=== PATIENT | male | born 1990 | race Caucasian/White ===

== ENCOUNTER 2017-05-24 03:14 | Inpatient (IN) | payer OTHER ==
[2017-05-24] MEDS ORDERED: HYDROmorphone 1 MG/ML 1 ML SYRINGE IVP STA ×2 (03:38→05:12)
[2017-05-24] MEDS ORDERED: RX INFO: IV CONTRAST WAS GIVEN 1 EACH MISC MISCELLANE PRN (03:38)
[2017-05-24] MEDS ORDERED: SODIUM CHLORIDE 0.9% 1,000 ML IV STA (03:38)
--- NOTE | 2017-05-24 03:41 | ED ---
General Adult HPI - General Source: patient, RN notes reviewed Mode of arrival: ambulatory Limitations: no limitations <Adrianne Hardy - Last Filed: 05/24/17 03:42> <Arnoldo Macario - Last Filed: 05/24/17 05:24> - General Chief complaint: Extremity Problem,Nontraumatic Stated complaint: leg pain Time Seen by Provider: 05/24/17 03:21 - History of Present Illness Initial comments: 26-year-old male presents to the emergency room chief complaint of right thigh pain. Patient states he had an injection about 3 days ago of anabolic steroids to the right thigh. Patient states since she's had a lot of pain feel swollen and it hurts to move the leg. Patient denies any redness to the area. Patient denies any fever or chills. Patient states she was concerned due to his continued pain and discomfort so he thought that he should be evaluated.Patient denies any recent fever, chills, shortness of breath, chest pain, back pain, abdominal pain, nausea vomiting, numbness or tingling, dysuria or hematuria, constipation or diarrhea, headaches or visual changes, or any other current symptoms. (Adrianne Hardy) - Related Data Home Medications Medication Instructions Recorded Confirmed No Known Home Medications [No 01/20/15 01/20/15 Known Home Medications] Allergies Allergy/AdvReac Type Severity Reaction Status Date / Time No Known Allergies Allergy Verified 05/24/17 03:21 Review of Systems ROS Other: All systems not noted in ROS Statement are negative. <Adrianne Hardy - Last Filed: 05/24/17 03:42> ROS Other: All systems not noted in ROS Statement are negative. <Arnoldo Macario - Last Filed: 05/24/17 05:24> ROS Statement: Those systems with pertinent positive or pertinent negative responses have been documented in the HPI. Past Medical History Past Medical History: No Reported History History of Any Multi-Drug Resistant Organisms: None Reported Past Surgical History: No Surgical Hx Reported Past Psychological History: No Psychological Hx Reported Smoking Status: Never smoker Past Alcohol Use History: None Reported Past Drug Use History: None Reported <Adrianne Hardy - Last Filed: 05/24/17 03:42> General Exam Limitations: no limitations <Adrianne Hardy - Last Filed: 05/24/17 03:42> <Arnoldo Macario - Last Filed: 05/24/17 05:24> - General Exam Comments Initial Comments: General: The patient is awake and alert, in no distress, and does not appear acutely ill. Neck: The neck is supple, there is no tenderness. Cardiovascular: There is a regular rate and rhythm. No murmur, rub or gallop is appreciated. Respiratory: Lungs are clear to auscultation, respirations are non-labored, breath sounds are equal. No wheezes, stridor, rales, or rhonchi. Musculoskeletal: Sensation intact with 2+ pulses throughout right lower extremity. Fund motion of right ankle. Patient has about 50% range of motion right knee due to pain on full flexion and full extension. There isalong the lateral aspect of the right thigh with some warmth to touch. There is no erythema. Full range of motion of the right hip with pain at extremes as well. Neurological: CN II-XII intact, There are no obvious motor or sensory deficits. Coordination appears grossly intact. Speech is normal. Skin: Skin is warm and dry and no rashes or lesions are noted. Psychiatric: Normal mood and affect. (Adrianne Hardy) Course <Adrianne Hardy - Last Filed: 05/24/17 03:42> <Arnoldo Macario - Last Filed: 05/24/17 05:24> Vital Signs 05/24/17 03:18 Temperature 98.5 F Pulse Rate 88 Respiratory 16 Rate Blood Pressure 132/79 O2 Sat by Pulse 98 Oximetry - Reevaluation(s) Reevaluation #1: 05/24/17 03:42 This case will be signed out to Dr. Macario. (Adrianne Hardy) Medical Decision Making <Adrianne Hardy - Last Filed: 05/24/17 03:42> - Lab Data Result diagrams: 05/24/17 03:40 05/24/17 03:40 <Arnoldo Macario - Last Filed: 05/24/17 05:24> - Medical Decision Making 26-year-old male presents emergency Department chief complaint of right thigh pain after an injection. (Adrianne Hardy) 26-year-old male with right thigh pain. He has subjective fever and chills. On examination there is no overlying erythema but there is significant tenderness in the right lateral thigh. There is warmth over this area. Laboratory studies are obtained which are significant for elevated CRP, mildly elevated white blood cell count, mild lactic acidosis of 2.1, and elevated creatinine kinase consistent with muscular involvement. CT is obtained and shows large fluid collection with enhancement, this is suggestive of abscess. Patient is started on IV antibiotics. Case is discussed with orthopedic surgery who will accept admission for surgical washout. (Arnoldo Macario) - Lab Data Lab Results 05/24/17 05/24/17 05/24/17 Range/Units 03:40 03:40 03:40 WBC 11.8 H (3.8-10.6) k/uL RBC 5.26 (4.30-5.90) m/uL Hgb 16.0 (13.0-17.5) gm/dL Hct 49.0 (39.0-53.0) % MCV 93.1 (80.0-100.0) fL MCH 30.3 (25.0-35.0) pg MCHC 32.6 (31.0-37.0) g/dL RDW 13.3 (11.5-15.5) % Plt Count 331 (150-450) k/uL Neutrophils % 64 % Lymphocytes % 24 % Monocytes % 8 % Eosinophils % 2 % Basophils % 0 % Neutrophils # 7.6 (1.3-7.7) k/uL Lymphocytes # 2.8 (1.0-4.8) k/uL Monocytes # 0.9 (0-1.0) k/uL Eosinophils # 0.2 (0-0.7) k/uL Basophils # 0.0 (0-0.2) k/uL ESR 6 (0-15) mm/hr Sodium 139 (137-145) mmol/L Potassium 4.0 (3.5-5.1) mmol/L Chloride 100 (98-107) mmol/L Carbon Dioxide 27 (22-30) mmol/L Anion Gap 12 mmol/L BUN 12 (9-20) mg/dL Creatinine 1.30 H (0.66-1.25) mg/dL Est GFR (MDRD) Af Amer >60 (>60 ml/min/1.73 sqM) Est GFR (MDRD) Non-Af >60 (>60 ml/min/1.73 sqM) Glucose 89 (74-99) mg/dL Plasma Lactic Acid Sam 2.2 H* (0.7-2.0) mmol/L Calcium 9.1 (8.4-10.2) mg/dL Total Bilirubin 0.7 (0.2-1.3) mg/dL AST 50 (17-59) U/L ALT 47 (21-72) U/L Alkaline Phosphatase 62 (38-126) U/L Creatine Kinase 1249 H (55-170) U/L C-Reactive Protein 34.8 H (<10.0) mg/L Total Protein 6.9 (6.3-8.2) g/dL Albumin 4.0 (3.5-5.0) g/dL Disposition <Adrianne Hardy - Last Filed: 05/24/17 03:42> Decision to Admit Reason: Admit from EC Decision Date: 05/24/17 Decision Time: 05:23 <Arnoldo Macario - Last Filed: 05/24/17 05:24> Clinical Impression: Myositis, Abscess Disposition: ADMITTED IP TO THIS [facility] Condition: Stable Referrals: None,Stated [Primary Care Provider] - 1-2 days
[2017-05-24 03:56] LABS: Basophils % (A) 0 %; CH 29.7; CHCM 32.1; Eosinophils # (A) 0.2 k/uL (0-0.7); Eosinophils % (A) 2 %; HDW 2.84; Luc % (Auto) 3; Lymphocytes # (A) 2.8 k/uL (1.0-4.8); Lymphocytes % (A) 24 %; MCH 30.3 pg (25.0-35.0); MCHC 32.6 g/dL (31.0-37.0); MCV 93.1 fL (80.0-100.0); Mean Platelet Volume 6.7; Monocytes # (A) 0.9 k/uL (0-1.0); Monocytes % (A) 8 %; Neutrophils # (A) 7.6 k/uL (1.3-7.7); Neutrophils % (A) 64 %; RBC 5.26 m/uL (4.30-5.90); RDW 13.3 % (11.5-15.5); WBC 11.8 k/uL (3.8-10.6); WBC (Perox) 11.45
[2017-05-24 04:08] LABS: ALT 47 U/L (21-72); AST 50 U/L (17-59); Alkaline Phosphatase 62 U/L (38-126); Anion Gap 12 mmol/L; Blood Urea Nitrogen 12 mg/dL (9-20); C Reactive Protein 34.8 mg/L (<10.0); Calcium 9.1 mg/dL (8.4-10.2); Carbon Dioxide 27 mmol/L (22-30); Chloride 100 mmol/L (98-107); Creatine Kinase 1249 U/L (55-170); Glucose 89 mg/dL (74-99); Non-African American GFR(MDRD) >60 (>60 ml/min/1.73 sqM); Sodium 139 mmol/L (137-145); Total Bilirubin 0.7 mg/dL (0.2-1.3); Total Protein 6.9 g/dL (6.3-8.2)
[2017-05-24] MEDS ORDERED: VANCOMYCIN 2,000 MG in SODIUM CHLORIDE 0.9% 500 ML IVPB STA (04:20)
[2017-05-24] MEDS ORDERED: SODIUM CHLORIDE 0.9% 1,000 ML IV ONE (04:20)
[2017-05-24 04:46] LABS: Erythrocyte Sedimentation Rate 6 mm/hr (0-15)
[2017-05-24] MEDS ORDERED: VANCOMYCIN 1,500 MG in SODIUM CHLORIDE 0.9% 250 ML IVPB ONE (05:00)
--- NOTE | 2017-05-24 05:08 | CT ---
EXAM: CT Right Lower Extremity With Intravenous Contrast CLINICAL HISTORY: Pain TECHNIQUE: Axial computed tomography images of the right lower extremity with intravenous contrast. CTDI is 17.20 mGy and DLP is 1087.40 mGy-cm. This CT exam was performed using one or more of the following dose reduction techniques: automated exposure control, adjustment of the mA and/or kV according to patient size, and/or use of iterative reconstruction technique. COMPARISON: No relevant prior studies available. FINDINGS: Bones/joints: No acute osseous abnormality. No dislocation. Soft tissues: There is a fluid collection along the right tensor fascial nerissa that extends from the gluteus benito and extends inferiorly along the lateral muscle bellies to the mid thigh. This measures approximately 19.5 cm in the cranial caudal dimensions. There are peripheral enhancing fluid collections that extend along the vastus lateralis muscle and either extends along the fascial planes or is intramuscular. This measures up to 10.8 cm the craniocaudal dimensions. IMPRESSION: There is a fluid collection along the right tensor fascial nerissa that extends from the gluteus benito and extends inferiorly along the lateral muscle bellies to the mid thigh. This measures approximately 19.5 cm in the cranial caudal dimensions. There are peripheral enhancing fluid collections that extend along the vastus lateralis muscle and either extends along the fascial planes or is intramuscular. This measures up to 10.8 cm the craniocaudal dimensions. Findings are concerning for abscess.
[2017-05-24] MEDS ORDERED: NALOXONE 0.4 MG/ML 1 ML VIAL IV PRN ×2 (05:16→11:12)
[2017-05-24] MEDS ORDERED: ONDANSETRON 4 MG/2 ML VIAL IVP PRN (05:16)
[2017-05-24] MEDS ORDERED: MORPHINE SULFATE 4 MG/ML SYRINGE IV PRN (05:16)
[2017-05-24] MEDS ORDERED: ACETAMINOPHEN TAB 325 MG TAB PO PRN (05:16)
[2017-05-24] MEDS ORDERED: IV VANCOMYCIN PER PHARMACY 1 EACH MISC MISCELLANE PRN (05:21)
[2017-05-24] MEDS ORDERED: SODIUM CHLORIDE 0.9% 1,000 ML IV SCH (05:30)
[2017-05-24 05:48] LABS: INR 1.1 (<1.2); Partial Thromboplastin Time 24.7 sec (22.0-30.0); Prothrombin Time 11.2 sec (9.0-12.0)
--- NOTE | 2017-05-24 08:03 | P.HPOR ---
History of Present Illness H&P Date: 05/24/17 The patient is a previously healthy 26-year-old male who is admitted with increasing right hip pain and concern for deep abscess. The patient is very active in lifting weights and injects IM steroids into his thighs. The patient states a little over a week ago he developed acute pain in his thigh which spontaneously resolved. Several days ago the pain returned. The patient initially thought it would improve but it is progressively worsened. The patient has also developed subjective chills. He's had increasing pain in his thigh. He presented the emergency department last night where inflammatory markers were elevated and a computed tomography scan was obtained that showed a large fluid collection over the lateral aspect of the right thigh which the radiologist was concerned for an abscess. This morning the patient is complaining of isolated pain on the lateral border of his right thigh. He is also complaining of chills. He has no other complaints. Past Medical History Past Medical History: No Reported History History of Any Multi-Drug Resistant Organisms: None Reported Past Surgical History: No Surgical Hx Reported Past Anesthesia/Blood Transfusion Reactions: No Reported Reaction Past Psychological History: No Psychological Hx Reported Smoking Status: Never smoker Past Alcohol Use History: None Reported Past Drug Use History: None Reported Medications and Allergies Home Medications Medication Instructions Recorded Confirmed Type No Known Home Medications [No 01/20/15 01/20/15 History Known Home Medications] Allergies Allergy/AdvReac Type Severity Reaction Status Date / Time No Known Allergies Allergy Verified 05/24/17 03:21 Physical Examination On exam the patient is in no apparent distress and is alert and oriented 3. His head is normocephalic and atraumatic. He demonstrates nonlabored breathing with symmetric chest expansion. He has no tenderness down his cervical, thoracic, or lumbar spine. His abdomen is nontender nonobese. A focused exam of the right lower extremity was conducted. On inspection of the skin overlying the lateral aspect of the leg there are several longo from injection sites. There is minimal overlying erythema. There is palpable fluctuance along lateral aspect of the thigh which is markedly tender to palpation. The thigh is soft. There is no pain with passive range of motion of the knee or toes. Distally the right foot is neurovascularly intact with sensation intact to light touch, motor function intact, and palpable pulses. Results Computed tomography scan of the right leg from the hip to the knee shows a fluid collection along the lateral aspect of the quadriceps muscle which the radiologist raises concern for an abscess. - Labs Labs: Abnormal Lab Results - Last 24 Hours (Table) 05/24/17 05/24/17 05/24/17 Range/Units 03:40 03:40 03:40 WBC 11.8 H (3.8-10.6) k/uL Creatinine 1.30 H (0.66-1.25) mg/dL Plasma Lactic Acid Sam 2.2 H* (0.7-2.0) mmol/L Creatine Kinase 1249 H (55-170) U/L C-Reactive Protein 34.8 H (<10.0) mg/L H & H 05/24/17 Range/Units 03:40 Hgb 16.0 (13.0-17.5) gm/dL Hct 49.0 (39.0-53.0) % Coagulation 05/24/17 Range/Units 03:40 INR 1.1 (<1.2) Result Diagrams: 05/24/17 03:40 05/24/17 03:40 Assessment and Plan (1) Abscess Status: Acute Plan: The patient is a 26-year-old male who injects IM steroids into his thighs and now has a likely abscess. Due to the size of the abscess, inflammatory markers being elevated, and radiologist raising concern for an abscess I recommended performing an incision and drainage in the operating room. We discussed that deep cultures will be obtained. We discussed potential risks and complication of surgery including but not limited to risks of anesthesia, risk of superficial infection, risk of deep infection, risk of delayed wound healing, risk of wound necrosis, risk of postoperative weakness, risk of inability to regain preinjury level of weight lifting function, risk of chronic pain, risk of chronic swelling, risk of need for further surgery, risk of significant worsening of his infection, risk of postoperative medical complications, and possibly loss of life or limb. The patient understands this and that there will be a lengthy recovery time from which she will need to abstain from weight lifting. He provided his verbal and written consent to go forward with an incision and drainage of his right leg.
[2017-05-24] MEDS ORDERED: IV FLUID CONTINUATION 1,000 ML IV ONE ×2 (08:49)
[2017-05-24] MEDS ORDERED: fentaNYL (PF) 50 MCG/ML 2 ML AMP ONE (10:04)
[2017-05-24] MEDS ORDERED: SUCCINYLCHOLINE CHLORIDE VIAL 200 MG/10 ML VIAL IV ONE (10:04)
[2017-05-24] MEDS ORDERED: LIDOCAINE 1% INJ 10MG/ML (20 ML MDV) ONE (10:04)
[2017-05-24] MEDS ORDERED: PROPOFOL 10 MG/ML 20 ML VIAL IV ONE (10:04)
[2017-05-24] MEDS ORDERED: DEXAMETHASONE SOD PHOS (MDV) 100 MG/10 ML VIAL ONE (10:04)
[2017-05-24] MEDS ORDERED: ONDANSETRON 4 MG/2 ML VIAL ONE (10:04)
[2017-05-24] MEDS ORDERED: MIDAZOLAM 2 MG/2 ML VIAL ONE (10:04)
[2017-05-24] MEDS ORDERED: HYDROmorphone (PF) 1 MG/ML ONE (10:04)
[2017-05-24] MEDS ORDERED: LACTATED RINGERS 1,000 ML IV ONE (10:21)
[2017-05-24] MEDS ORDERED: ceFAZolin 1,000 MG in SODIUM CHLORIDE 0.9% 1,000 ML IRRIGATION ONE (10:22)
[2017-05-24] MEDS ORDERED: ceFAZolin 3,000 MG in SODIUM CHLORIDE 0.9% IRRIGATIO 3,000 ML IRRIGATION ONE (10:32)
[2017-05-24] MEDS ORDERED: HYDROmorphone 1 MG/ML 1 ML SYRINGE IVP PRN ×2 (11:12)
[2017-05-24] MEDS ORDERED: HYDROcodone/APAP 5-325MG 1 EACH TAB PO PRN (11:12)
--- NOTE | 2017-05-24 11:24 | P.OP ---
Date of Procedure: 05/24/17 Preoperative Diagnosis: 1. Right thigh abscess 2. History of intramuscular steroid use Postoperative Diagnosis: Same Procedure(s) Performed: 1. Incision and drainage of right thigh intramuscular abscess 2. Irrigation and debridement of right thigh abscess (an 18 cm incision was made over the lateral aspect of the thigh and a scalpel was used to sharply debride nonviable skin, subcutaneous fat, and muscle) Implants: Anesthesia: GETA Surgeon: Krishna Zuniga Estimated Blood Loss (ml): 20 IV fluids (ml): 600 Pathology: other (Deep cultures sent) Condition: stable Disposition: PACU Indications for Procedure: The patient is a 26-year-old male who injects intramuscular steroids into his thighs. He developed pain and swelling over his right thigh 8 days ago spontaneously resolved. Several days ago the pain returned and has progressively worsened. He is also started to develop chills and feeling systemic illness. The patient came to the emergency department where there was an elevated CRP and a computed tomography scan showed an intramuscular abscess. With the patient and discussed incision and drainage of the abscess. The patient agreed to this. We discussed potential risks and complication of surgery including but not limited to risk of anesthesia, risk of superficial infection, risk of deep infection, risk of ongoing infection, risk of need for further surgery, risk of damage to local blood vessels or nerves, risk of postoperative compartment syndrome, risk of weakness in the thigh, risk of inability to regain preinjury level of physical function, risk of postoperative medical problems and possibly loss of life or limb. The patient understands the serious nature of his abscess and the prolonged recovery and potential for complications. He provided his verbal and written consent to go forward with surgery.. Operative Findings: There was a large intramuscular abscess of thick chocolate milk colored purulent fluid deep to the IT band within the vastus lateralis. Description of Procedure: The patient was identified in preoperative holding and the correct right leg was marked with my initials. I reviewed the consent form with the patient and all of his questions were answered. The patient was then brought back to the operating room. He was positioned on the operating room table and all bony prominences were well-padded. A general anesthetic was administered. The patient's right leg was then prepped and draped in the standard sterile fashion. Prior to starting surgery timeout was performed identifying the correct patient operative extremity and procedure. I began by outlining an 18 cm incision directly over the lateral aspect of the quadriceps in the mid third of the thigh directly over the site of the palpable fluctuance and healed poke incisions from his injections. Skin incision was made a 10 blade scalpel. Superficial bleeders were controlled with electrocautery. Dissection was carried down carefully to the IT band. The IT band was incised with electrocautery in line with the skin incision. I then bluntly dissected with my finger into the muscle belly of the vastus lateralis and there was immediately a large nguyen of dark, chocolate milk-colored purulent material expressed from the wound. 2 sets of cultures were taken of this purulent material. The wound was then copiously irrigated with 3 L of sterile saline. I used a scalpel to remove the lining of the abscess and any nonviable- appearing subcutaneous tissue. The wound was then irrigated. The wound appeared clean with no evidence of purulence. The abscess was completely evacuated. I then closed the majority of the fascia with a running 0 Prolene stitch. At the proximal aspect of the fascia and opening was left and I packed iodoform with a hemostat both proximally and distally into the abscess cavity leaving a small wick protruding through the skin. The subcutaneous tissue was then closed with interrupted 2-0 Prolene. The skin was closed with 3-0 nylon horizontal mattress stitches. At the most proximal aspect of the incision a small opening was left through which the iodoform wick protruded. A sterile dressing consisting of Betadine soaked Adaptic, 4 x 4, web roll and an Boo wrap was applied. I verified that all instrument, sponge, and sharp counts were correct. The patient was then transferred from the operating table to a [place] and brought to PACU having thought the procedure well. Plan: The patient can weight-bear as tolerated on his right leg. I would like to consult Dr. Santillan for assistance with antibiotic recommendation, route of administration, duration and wound management. The patient's dressing can be changed any time. We will begin slowly removing the iodoform wick tomorrow.
[2017-05-24] MEDS: VANCOMYCIN 2,000 MG in SODIUM CHLORIDE 0.9% 500 ML IVPB SCH ×2 (15:40→23:13)
[2017-05-24] MEDS ORDERED: VANCOMYCIN 1,500 MG in SODIUM CHLORIDE 0.9% 250 ML IVPB SCH (17:00)
[2017-05-24] MEDS: HYDROcodone/APAP 5-325MG 1 EACH TAB PO PRN (17:13)
[2017-05-25] MEDS: HYDROcodone/APAP 5-325MG 1 EACH TAB PO PRN ×4 (01:08→22:02)
[2017-05-25] MEDS: SODIUM CHLORIDE 0.9% 1,000 ML IV SCH (09:53)
--- NOTE | 2017-05-25 10:05 | CONS ---
CONSULTATION DATE OF SERVICE: 05/24/2017 REASON FOR CONSULTATION: Right thigh abscess and cellulitis. HISTORY OF PRESENT ILLNESS: The patient is a 26-year-old, male presenting to the ER at [facility] with chief complaint of the right flank pain. Apparently the patient has been injecting anabolic steroid into the right thigh area with the last injection being about 3 days ago. The patient has been complaining of significant pain to the thigh area. Pain described to be sharp almost 10 out of 10 by the time he presented to the ER. The patient denies any high-grade fever, and chills though. The patient subsequently has been evaluated by the ER physician. The patient did have a femur CT done which shows a fluid collection along the right tensor fascia nerissa that extends from the gluteus benito extending inferiorly along the lateral muscle to the main thigh area approximately 19.5 cm. The patient has been evaluated by Dr. Dove from orthopedic surgery. The patient was taken to the OR this morning. The patient did have incision and drainage of right thigh intramuscular abscess with irrigation and department of the right thigh abscess and 2 cm incision and did have cultures obtained. The patient is being treated with Rocephin and vancomycin. ID was consulted for further recommendation regarding antibiotic therapy. REVIEW OF SYSTEMS: CONSTITUTIONAL: Positive for weakness, but no high-grade fever. EYES: No complaint. ENT: No complaint. RESPIRATORY: No complaint. CARDIOVASCULAR: No complaint. GENITOURINARY: No complaint. GASTROINTESTINAL: No complaint. MUSCULOSKELETAL: As per HPI. INTEGUMENTARY: As per HPI. PSYCHOLOGICAL: No complaint. ENDOCRINE: No complaint. NEUROLOGICAL: No complaint. PAST MEDICAL HISTORY: No major illnesses. PAST SURGICAL HISTORY: No surgeries. SOCIAL HISTORY: Denies smoking, drinking, or drug use. FAMILY HISTORY: No pertinent findings noticed. ALLERGIES: No known drug allergies. MEDICATIONS: Medications include the patient is currently on Tylenol, [place], Rocephin 1 g daily. He is on Dilaudid, Narcan, Zofran, vancomycin 2 g q.12h with pharmacy to dose. PHYSICAL EXAMINATION: On examination, blood pressure is 132/60 with a pulse of 96, temperature is 98.5. He is 96% on room air. General description is a young male, lying in bed, in no distress. No tachypnea or accessory muscle of respiration use. HEENT examination shows no pallor or scleral icterus. Oral mucosa is dry. NECK: Trachea is central. No thyromegaly. LUNGS: Unlabored breathing. Clear to auscultation. HEART: S1, S2. Regular rate and rhythm. ABDOMEN: Soft, no tenderness. EXAMINATION OF RIGHT THIGH: The patient did have an elongated incision. There is some swelling around the area but no redness was noticed or any purulent drainage. NEUROLOGICAL: Patient is awake, alert, oriented x3. Mood and affect normal. LABS: BUN of 12, creatinine 1.3. Electrolytes have been normal. Lactic acid elevated at 2.2, however normalized to 0.9. CPKs were 1249. CPR 34.8, with a hemoglobin of 16, white count 11.8. DIAGNOSTIC IMPRESSION AND PLAN: Patient with right thigh abscess/hematoma that started after the patient injected anabolic steroid in this area, status post extensive debridement. Hematoma may be favored in view of the late response of systemic symptoms especially with no fever or significantly elevated white count and no significant redness on the thigh area was noticed. PLAN: 1. We will keep the patient on vancomycin pharmacy to dose along with the Rocephin. This will provide IV broad coverage for both Gram-positive and gram-negative. 2. Depending upon clinical response as well as the cultures will determine his discharge antibiotic. The patient was insisting on going home. He has been advised to stay in the hospital at least until the cultures are finalized. Thank you for this consultation. Will follow this patient along with you. MMODL / IJN: [id number] /
[2017-05-25] MEDS: VANCOMYCIN 2,000 MG in SODIUM CHLORIDE 0.9% 500 ML IVPB SCH (11:14)
--- NOTE | 2017-05-25 21:04 | P.PN ---
Subjective Principal diagnosis: S/P I and D of right thigh Patient seen at bedside today. He is post op day #1 from I and D of deep right thigh abcess per Dr. Zuniga . He has no new complaints. He has post op pain as expected at the surgical site. He denies numbness, tingling or calf pain. ROS is negative for fever, chills, chest pain, SOB or other. Objective - Vital Signs Vital signs: Vital Signs Temp 97.7 F 05/25/17 10:48 Pulse 74 05/25/17 10:49 Resp 20 05/25/17 10:49 BP 138/66 05/25/17 10:48 Pulse Ox 99 05/25/17 10:48 Intake & Output 05/25/17 05/25/17 05/26/17 06:59 18:59 06:59 Intake Total 1600 960 Balance 1600 960 Intake: Intake, IV Titration 1600 Amount Sodium Chloride 0.9% 1, 1600 000 ml @ 100 mls/hr IV . Q10H KENNY Rx#:[id number] Oral 960 Other: Voiding Method Toilet # Voids 3 2 - Exam Inspection of lower extremity reveals a benign surgical wound. There is no active bleeding, drainage, or dehiscence. Iodoform guaze in place. Neuro status intact with motor and sensation throughout the lower extremity. Calf is soft and nontender. 2+ pulses and less than 2 sec cap refill present. - Constitutional General appearance: Present: no acute distress - Psychiatric Psychiatric: Present: A&O x's 3, appropriate affect, intact judgment & insight - Labs CBC & Chem 7: 05/24/17 03:40 05/24/17 03:40 Labs: Microbiology - Last 24 Hours (Table) 05/24/17 10:26 Gram Stain - Preliminary Thigh - Right Wound Culture - Preliminary 05/24/17 10:26 Gram Stain - Preliminary Thigh - Right Wound Culture - Preliminary 05/24/17 03:40 Blood Culture - Preliminary Blood No Growth after 24 hours Assessment and Plan (1) Abscess Narrative/Plan: He will continue with routine postop orthopedic protocol including wound care, PT, pain management, and DVT prophylaxis. Continue IV antiobiotics and wound care per infectious disease. Status: Acute Time with Patient: Less than 30
--- NOTE | 2017-05-25 21:05 | PN ---
PROGRESS NOTE DATE OF SERVICE: 05/25/2017 REASON FOR FOLLOWUP: Left thigh abscess, possible hematoma. INTERVAL HISTORY: The patient is afebrile. The patient did mention he did have some blood-stained drainage from the wound. For this, a pressure dressing has been applied. The pain is more, especially when he walks on it. When lying in bed, no pain. No fever. No chills. No chest pain, shortness of breath, cough or abdominal pain or any diarrhea. EXAMINATION: Blood pressure 138/56 with a pulse of 74, temperature 97.7. He is 99% on room air. General description is a young male lying in bed in no distress. RESPIRATORY SYSTEM: Unlabored breathing. Clear to auscultation. HEART: S1, S2. Regular rate and rhythm. ABDOMEN: Soft. No tenderness. RIGHT THIGH: Wound is clean and dressed up. No bleeding, drainage on the dressing. LABS: Cultures are currently pending. DIAGNOSTIC IMPRESSION AND PLAN: Patient with a right thigh hematoma. The question of possible abscess from injecting anabolic steroid into that area, status post debridement. We are waiting for the culture to finalize. Keep the patient on vancomycin at this point adjusting for the results of the culture report. Continue supportive care. MMODL / IJN: [id number] /
[2017-05-26] MEDS: SODIUM CHLORIDE 0.9% 1,000 ML IV SCH ×4 (00:10→20:43)
[2017-05-26] MEDS: VANCOMYCIN 2,000 MG in SODIUM CHLORIDE 0.9% 500 ML IVPB SCH ×3 (00:11→20:36)
[2017-05-26 07:14] LABS: Anion Gap 9 mmol/L; Blood Urea Nitrogen 12 mg/dL (9-20); Calcium 8.6 mg/dL (8.4-10.2); Carbon Dioxide 26 mmol/L (22-30); Chloride 108 mmol/L (98-107); Glucose 77 mg/dL (74-99); Non-African American GFR(MDRD) >60 (>60 ml/min/1.73 sqM); Potassium 4.8 mmol/L (3.5-5.1); Sodium 143 mmol/L (137-145)
[2017-05-26] MEDS: HYDROcodone/APAP 5-325MG 1 EACH TAB PO PRN ×2 (08:10→16:05)
--- NOTE | 2017-05-26 08:14 | CDI ---
In responding to this query, please exercise your independent professional judgment. The [facility] Coding Staff and Clinical Documentation Specialists appreciate your assistance in clarifying documentation, maintaining compliance with coding guidelines, accurately documenting patients condition and capturing severity of illness. The fact that a question is asked does not imply that any particular answer is desired or expected. Communication forms are a method of clarifying documentation and are not made part of the Legal Health Record. Thank you in advance for your clarification. Last Revision, July [address] [employer] [address] [facility] [place] [address] Documentation Clarification Form Date: 05/26/2017 8:07:00 AM From: Shannan Robert CCS, CCDS Admit Date: 05/24/2017 5:18:00 AM Patient Name: Chung Huang Visit Number: [id number] Discharge Date: Dr. Krishna Zuniga: Per your progress notes/operative note, a debridement was performed on 05/24 to the patient's right thigh. Per the OR note: 1. Incision and drainage of right thigh intramuscular abscess 2. Irrigation and debridement of right thigh abscess (an 18 cm incision was made over the lateral aspect of the thigh and a scalpel was used to sharply debride nonviable skin, subcutaneous fat, and muscle "The wound was then copiously irrigated with 3 L of sterile saline. I used a scalpel to remove the lining of the abscess and any nonviable-appearing subcutaneous tissue." History/Risk Factors: nka Clinical Indicators: Patient had a steroid injection in right thigh 3 days prior to admission, presented with possible abscess or hematoma per Infectious Disease consult. Treatment: I&D & Irrigation & Debridement in the OR with cultures. In order to capture the severity of condition and code the appropriate procedure could you please document the following: Excisional debridement: (the removal of necrotic, devitalized tissue or slough by means of cutting away of tissue) Non-excisional debridement: (the removal of necrotic, devitalized tissue or slough by means of flushing, brushing, or washing. (Irrigation) Other; with explanation for clinical findings Unable to determine (no explanation for clinical findings) Please document in your progress notes and discharge summary in order to capture severity of illness and risk of mortality. Include clinical findings that support your diagnosis. FYI: Press F11 to launch patient chart. DOTTIE
[2017-05-26] MEDS ORDERED: VANCOMYCIN TROUGH DUE 1 EACH MISC MISCELLANE ONE (11:00)
--- NOTE | 2017-05-26 11:41 | PN ---
PROGRESS NOTE DATE OF SERVICE: 05/26/2017 REASON FOR FOLLOWUP: Left thigh hematoma and a question of infection. INTERVAL HISTORY: The patient is afebrile. He is breathing comfortably. Pain to the right thigh is currently controlled and , 50% better. There is some swelling to it but no drainage. Denies chest pain, shortness of breath. No cough. PHYSICAL EXAMINATION: Blood pressure is 110/56 with pulse of 80, temperature 98.1. He is 97% on room air. General description is a middle-aged male lying in bed, in no distress. RESPIRATORY SYSTEM: Unlabored breathing. Clear to auscultation anteriorly. HEART: S1, S2. Regular rate and rhythm. ABDOMEN: Soft, no tenderness. Right lateral thigh incision looks clean with no cellulitis, just some swelling, no fluctuation or drainage. LABS: BUN of 12, creatinine of 1.11. All his cultures are negative. DIAGNOSTIC IMPRESSION AND PLAN: Patient with a right thigh, more likely hematoma from injections right into that area. Less likely abscess or an infection as the patient remains to be afebrile, no significant elevated white count and all the cultures are negative. He may be given a short course of oral Keflex. Local wound care to continue with the packing on the superior end of the wound followed by ABD and an Boo wrap to reduce some of the swelling now with close outpatient followup. MMODL / IJN: [id number] /
--- NOTE | 2017-05-26 16:14 | P.PN ---
Subjective Principal diagnosis: S/P I and D of right thigh Patient seen at bedside today. He is post op day #2 from I and D of deep right thigh abcess per Dr. Zuniga . He has no new complaints. He has post op pain as expected at the surgical site. He denies numbness, tingling or calf pain. ROS is negative for fever, chills, chest pain, SOB or other. Objective - Vital Signs Vital signs: Vital Signs Temp 98 F 05/26/17 14:42 Pulse 71 05/26/17 14:42 Resp 16 05/26/17 14:42 BP 114/69 05/26/17 14:42 Pulse Ox 98 05/26/17 14:42 Intake & Output 05/25/17 05/26/17 05/26/17 18:59 06:59 18:59 Intake Total 960 1900 300 Output Total 2300 Balance 960 -400 300 Intake: IV 300 Sodium Chloride 0.9% 1, 300 000 ml @ 100 mls/hr IV . Q10H KENNY Rx#:[id number] Oral 960 1900 Output: Urine 2300 Other: Voiding Method Toilet Toilet Toilet # Voids 2 2 - Exam Inspection of lower extremity reveals a benign surgical wound. There is no active bleeding, drainage, or dehiscence. Iodoform guaze in place. Neuro status intact with motor and sensation throughout the lower extremity. Calf is soft and nontender. 2+ pulses and less than 2 sec cap refill present. - Constitutional General appearance: Present: no acute distress - Psychiatric Psychiatric: Present: A&O x's 3, appropriate affect, intact judgment & insight - Labs CBC & Chem 7: 05/24/17 03:40 05/26/17 06:12 Labs: Abnormal Lab Results - Last 24 Hours (Table) 05/26/17 Range/Units 06:12 Chloride 108 H (98-107) mmol/L Microbiology - Last 24 Hours (Table) 05/24/17 10:26 Anaerobic Culture - Preliminary Thigh - Right 05/24/17 10:26 Anaerobic Culture - Preliminary Thigh - Right 05/24/17 10:26 Gram Stain - Final Thigh - Right Wound Culture - Final 05/24/17 10:26 Gram Stain - Final Thigh - Right Wound Culture - Final 05/24/17 03:40 Blood Culture - Preliminary Blood No Growth after 48 hours Assessment and Plan (1) Abscess Narrative/Plan: He will continue with routine postop orthopedic protocol including wound care, PT, pain management, and DVT prophylaxis. Expect D/C of packing tomorrow and D/ C to home on oral antibiotics per ID. Status: Acute Time with Patient: Less than 30
[2017-05-27] MEDS: SODIUM CHLORIDE 0.9% 1,000 ML IV SCH ×2 (00:25→10:10)
[2017-05-27] MEDS: HYDROcodone/APAP 5-325MG 1 EACH TAB PO PRN ×2 (00:31→10:16)
[2017-05-27 04:05] VITALS: TEMP 97.8
[2017-05-27] MEDS: VANCOMYCIN 2,000 MG in SODIUM CHLORIDE 0.9% 500 ML IVPB SCH (04:11)
[2017-05-27 07:27] LABS: Anion Gap 8 mmol/L; Blood Urea Nitrogen 10 mg/dL (9-20); Calcium 8.8 mg/dL (8.4-10.2); Carbon Dioxide 26 mmol/L (22-30); Chloride 107 mmol/L (98-107); Glucose 75 mg/dL (74-99); Non-African American GFR(MDRD) >60 (>60 ml/min/1.73 sqM); Potassium 5.5 mmol/L (3.5-5.1); Sodium 141 mmol/L (137-145)
[2017-05-27 08:14] VITALS: BP 137/79; PULSE 70; RESP 17
--- NOTE | 2017-05-27 09:25 | P.DS ---
Providers Date of admission: 05/24/17 05:18 Expected date of discharge: 05/27/17 Attending physician: Krishna Zuniga Consults: 05/24/17 11:12 Consult Physician Routine Consulting Provider: Alessandro Santillan Consult Reason/Comments: right thigh intramuscular abscess Do you want consulting provider notified?: Yes Primary care physician: Stated None - Discharge Diagnosis(es) (1) Abscess Patient is a 26-year-old male who was admitted through the emergency department on 05/24/2017 after having increasing complaints of right thigh pain and swelling. He had a history of intramuscular injections and studies showed probable abscess and fluid collection. He was taken to the operating room on and had an I&D performed by Dr. Zuniga. He tolerated the procedure well without complication. His postoperative hospital course has remained without complication. He's had a course of IV antibiotics and has remained afebrile with a normal white blood cell count. Cultures and sensitivities have remained negative. On day of discharge the wound is benign, he is afebrile, labs within acceptable ranges, neurovascular status intact, nontender, 2+ dorsalis pedis pulse and less than 2 second cap refill, tolerating by mouth meds and diet, pain controlled with oral pain medication, denying new complaints , voiding without difficulty, positive bowel movement. Review of systems is negative for fever, chills, chest pain, abdominal pain, calf pain, numbness, tingling, shortness of breath, nausea, vomiting, dizziness, headaches, slurred speech or other. Current Visit: Yes Status: Acute Priority: Medium Procedures: I&D of right thigh Patient Condition at Discharge: Good Plan - Discharge Summary New Discharge Prescriptions: New Cephalexin [Keflex] 500 mg PO Q6HR #40 cap Docusate [Colace] 100 mg PO BID #60 capsule HYDROcodone/APAP 5-325MG [[place] 5-325] 1 tab PO Q4HR PRN #60 tab PRN Reason: Pain Discharge Medication List Cephalexin [Keflex] 500 mg PO Q6HR #40 cap 05/26/17 [Rx] Docusate [Colace] 100 mg PO BID #60 capsule 05/27/17 [Rx] HYDROcodone/APAP 5-325MG [[place] 5-325] 1 tab PO Q4HR PRN #60 tab 05/27/17 [Rx] Follow up Appointment(s)/Referral(s): None,Stated [Primary Care Provider] - 1-2 days Alessandro Santillan MD [STAFF PHYSICIAN] - 1 Week Krishna Zuniga MD [Medical Doctor] - 1 Week Activity/Diet/Wound Care/Special Instructions: [place] [facility]. [phone] Daily wound packing Keep wound clean and dry Elevate right lower extremity Take meds as directed Weight-bear as tolerated Follow up with Dr. Zuniga in office, [phone] Discharge Disposition: HOME WITH HOME HEALTH SERVICES
--- NOTE | 2017-05-27 15:29 | PN ---
PROGRESS NOTE DATE OF SERVICE: 05/27/2017. REASON FOR FOLLOWUP: Right thigh hematoma with question of infection. INTERVAL HISTORY: The patient is afebrile. He is feeling better. Breathing comfortably. Pain to the right thigh is currently controlled. No further drainage or bleeding has been noticed. No chest pain, shortness of breath or cough. PHYSICAL EXAMINATION: Blood pressure 137/79 with a pulse of 70, temperature 97.8. He is 97% on room air. General description is a young male up in the chair, in no distress. RESPIRATORY SYSTEM: Unlabored breathing. Clear to auscultation anteriorly. HEART: S1, S2. Regular rate and rhythm. ABDOMEN: Soft, no tenderness. Right thigh is currently dressed up, no obvious drainage on the dressing. LABS: BUN of 10 and creatinine 1.19. All the cultures were negative. DIAGNOSTIC IMPRESSION AND PLAN: Patient with right thigh likely hematoma, status post drainage, less likely infectious with all cultures negative. Vanco level was very low. Clinically doubt it was of any benefit with no fever or elevated white count. Will give a short course of oral Keflex, local wound care with Aquacel Silver packing. Follow up in the office next week. MMODL / IJN: [id number] /
[2017-05-28] MEDS ORDERED: VANCOMYCIN TROUGH DUE 1 EACH MISC MISCELLANE ONE (03:00)
== END 2017-05-27 13:00 | disposition home health service (06) | DRG 581 ==
LOC: EC 03:14 → 3SUR 05:18
PROVIDERS: ADMIT Orthopaedic Surgery; ATTEND Orthopaedic Surgery
PROC: 0KBQ0ZZ Excision of Right Upper Leg Muscle, Open Approach (ICD-10-PCS; principal; 2017-05-24 08:04)
DX: L02.415 Cutaneous abscess of right lower limb (principal); T38.7X5A Adverse effect of androgens and anabolic congeners, initial encounter; L03.115 Cellulitis of right lower limb
CPT/HCPCS: 36415; 80048; 80053; 80202; 82550; 83605; 85025; 85610; 85652; 85730; 86140; 86850; 86900; 86901; 87040; 87070; 87075; 87205; 96361; 96365; 96368; 96375; 99284

== ENCOUNTER → 2022-04-09 | Outpatient (CLI) | payer BC ==
--- NOTE | 2022-04-10 03:37 | MR ---
EXAMINATION TYPE: MR wrist RT wo con DATE OF EXAM: 04/09/2022 COMPARISON: None HISTORY: Right wrist pain, hx injury. Multiplanar multiecho imaging of the right wrist with no contrast. There is mild wrist joint effusion. The carpal bones show slight increased signal on the STIR images involving the capitate trapezoid joint. This is consistent with a mild bone bruise. The scaphoid is i ntact. Trapezium is intact. Distal radius and ulna appear intact. The triangular cartilage appears in tact. No fracture line seen. The flexor and extensor tendons are intact. The proximal metacarpals are intact. IMPRESSION: There is mild bone bruise at the capitate trapezoid joint. No fracture seen. Wrist joint moderate eff usion consistent with some synovitis.
== END | disposition home or self-care (01) ==
LOC: RADMRIMAIN 19:30
PROVIDERS: ATTEND Orthopaedic Surgery
DX: S63.511A Sprain of carpal joint of right wrist, initial encounter (principal)